=== PATIENT | female | born 1995 | race African-American/Black ===

== ENCOUNTER 2017-08-29 19:59 | Inpatient (IN) ==
[~2017-08-29 19:59] MED LIST: *HR* Nalbuphine 10 MG/ML AMPUL IVP PRN; Famotidine 20 MG/2 ML VIAL IVP PRN; Naloxone 0.4 MG/ML INJ IVP PRN; Ondansetron 4 MG/2 ML VIAL IVP PRN
[2017-08-29] MEDS ORDERED: Penicillin G Potassium 5,000,000 UNIT in 0.9 % Sodium Chloride Mini Bag 100 ML IVPB ONE (20:00)
[2017-08-29] MEDS ORDERED: Ringers Solution, Lactated 1,000 ML IVC SCH (20:00)
[2017-08-29] MEDS ORDERED: miSOPROStol 100 MCG TABLET PO STA (20:00)
--- NOTE | 2017-08-29 20:07 | OB/GYN History & Physical ---
Date of Encounter: 08/29/17 Time of Encounter: 20:03 Assessment and Plan (1) 39 weeks gestation of Current visit: Yes Status: Acute Admit for delivery (2) Spontaneous rupture of membranes Current visit: Yes Status: Acute admit for delivery Will augment labor with cytotec (3) Group B streptococcal infection during Current visit: Yes Status: Acute PCN started per protocol (4) Cystic fibrosis carrier in third trimester, antepartum Current visit: Yes Status: Acute FOB was not tested Patient was seen by MFM (5) Sickle cell trait Current visit: Yes Status: Acute FOB was not tested Patient seen MFM during History of Present Illness Chief complaint: SROM HPI: Ms. Gallagher is a 22 year old female @ 39w2d presents to labor and delivery with complaints of leaking of fluid. Patient reports a large gush around 1830 clear fluid. Patient reports +FM. Denies VB. is a Sickle cell and cystic fibrosis carrier and FOB was not tested. Nitrazine was negative however there was +pooling and + FERN. Blood type: A+ Rubella:Immune Hep B: Nonreactive GBS: Positive Past Med Surg Social Fam HX - Past Medical History Source: patient Medical history: no medical history Psychiatric history: no psych history - Past Surgical History Surgical History: other - Social History Smoking Status: Former smoker Smokeless Tobacco Status: No Alcohol use: none Drug use: none Current living situation: Home - Independent Activity Level: Independent ambulation Recent Out of Country Travel Within the Last 8 Weeks: No Exposure or Possible Exposure to Illness During Travel: No - Family History Mother Adopted: No Living Status: Still Living Hx Family Cancer: Yes (cervical cancer) Obstetrical History - Pregnancies : 2 Para: 0 Term: 0 : 0 Ab's: 1 Livin Medications and Allergies Vitamins 1 tab PO DAILY 07/21/17 [History] 3 Allergy/AdvReac Type Severity Reaction Status Date / Time No Known Allergies Allergy Verified 08/29/17 19:43 Review of System OB - Constitutional Constitutional ROS IM: no chills, no fever(s), no headache(s) - Cardiovascular Cardiovascular: no chest pain, no lightheadedness, no palpitations, no pedal edema, no syncope - Respiratory Respiratory: no cough - Gastrointestinal Gastrointestinal: no abdominal pain, no cramping, no diarrhea, no heartburn, no nausea, no vomiting - Genitourinary Genitourinary: vaginal discharge (per HPI), no abnormal vaginal bleeding, no dysuria, no flank pain, no urinary frequency, no urinary urgency, no vaginal odor, no vaginal pruritis Exam - Constitutional Constitutional: well developed, well nourished, no acute distress, average body habitus - HEENT HEENT: Normocephaly, Mucus Membranes Moist - Neck Neck exam: full ROM, supple - Lungs Respiratory exam: CTAB - Cardiovascular Cardiovascular exam: RRR, +S1, +S2 - Abdomen Abdomen: Present: bowel sounds normal, gravid, non tender - Extremities Extremities exam: full ROM, normal capillary refill, normal inspection Deep Tendon Reflex Grade: 2+ Normal - Vagina Vagina: Present: normal moisture - Cervix Dilation: 2 Effacement: 50 Station: -2 - Uterus Uterus exam: Present: normal size, normal contour - Anus/Rectum Anus/Rectum: Present: normal perianal skin - Comments Comments: 145 bpm moderate variability +15x15 accels no decels noted. Cat. 1 tracing. contractions are irregular Results All other labs normal. - VTE Reasons for not Prescribing Prophylaxis: Treatment not Indicated - Low risk for VTE
[2017-08-29 20:30] LABS: Basophils # 0.1 K/mcL (0.0-0.2); Basophils % 0.4 %; Eosinophils # 0.1 K/mcL (0.0-0.6); Eosinophils % 0.4 %; Hemoglobin 12.1 g/dL (11.5-15.4); Lymphocytes # 2.2 K/mcL (0.6-4.6); Lymphocytes % 16.2 %; Mean Corpuscular HGB Conc 34.6 g/dL (31.6-35.5); Mean Corpuscular Hemoglobin 28.6 pg (28.0-33.3); Mean Corpuscular Volume 82.7 fL (83.0-100.0); Mean Platelet Volume 8.5 fL (9.4-12.4); Monocytes % 7.3 %; Neutrophils # 10.1 K/mcL (1.6-8.9); Platelet Count 238 K/mcL (140-400); Red Blood Count 4.23 M/mcL (3.82-4.97); Red Cell Distribution Width 14.1 % (11.5-14.5); Segmented Neutrophils % 74.7 %
[2017-08-29 20:40] LABS: Amphetamine Screen,Urine Negative ng/mL (Cutoff=1000); Barbiturate Screen,Urine Negative ng/mL (Cutoff=200); Benzodiazepines Screen,Urine Negative ng/mL (Cutoff=200); Cannabinoid Screen,Urine Negative ng/mL (Cutoff = 50); Cocaine Screen,Urine Negative ng/mL (Cutoff= 300); Opiate Screen,Urine Negative ng/mL (Cutoff=300); Phencyclidine Screen,Urine Negative ng/mL (Cutoff=25)
[2017-08-30] MEDS: Penicillin G Potassium 2,500,000 UNIT in 0.9 % Sodium Chloride 100 ML IVPB SCH ×5 (00:34→17:30)
[2017-08-30] MEDS ORDERED: Oxytocin 20 units/ LR 1000 mL 20 UNIT/1,000 ML BAG IVC SCH ×2 (01:15→20:16)
--- NOTE | 2017-08-30 05:38 | OB Labor Progress Note ---
Date of Encounter: 08/30/17 Time of Encounter: 05:35 Labor Progress Note - Subjective Subjective: Patient reports contractions are getting stronger. Pain is 9/10. Discussed POC with patient. Patient denies any questions or concerns. - Cervix Cervix: 3/80/-1, Mid position - Heart Tones Heart Tones: 125 bpm moderate variability +15x15 accels no decels - [place]: 1.5-3 min apart - Interventions Interventions: SVE, IUPC placed without difficulty. Patient tolerated well. - Plan Plan: Continue labor management Patient requesting Nubain for pain medication at this time Patient may have Epidural when desires
[2017-08-30] MEDS ORDERED: *HR* FentaNYL (PF) 100 MCG/2 ML VIAL ONE (06:16)
[2017-08-30] MEDS ORDERED: Bupivacaine-MPF 0.25% 10 ML VIAL ONE (06:16)
[2017-08-30] MEDS ORDERED: Epidural Premix (fent/bupiv) 110 ML EP ONE ×2 (06:17→16:06)
--- NOTE | 2017-08-30 06:57 | Anesthesia Evaluation PreOp ---
Date of Encounter: 08/30/17 Time of Encounter: 06:55 - Past History Planned Operation: [email or web address] Cardiac History: Denies any Significant Hx Pulmonary History: Denies Any Significant HX BUNCH MAKER HAND History: Denies Any Significant HX Other Medical History: Other (occasional heartburn) Anesthesia History: No Prior Anesthetic Complications, Past Anesthesia : Yes (39 weeks, ) Alcohol Use: none Drug use: none Medications and Allergies Vitamins 1 tab PO DAILY 07/21/17 [History] 3 Allergy/AdvReac Type Severity Reaction Status Date / Time No Known Allergies Allergy Verified 08/29/17 19:43 - Meds/Allergy Pre-op Review Medications Reviewed: Yes Allergies Reviewed: Yes Beta Blockers on Current Med List: No Anesthesia Results - Labs 08/29/17 20:00 Anesthesia Exam O2 Sat Height 1.63 m Weight 87.3 kg bp 119/70 Height: 64 Weight: 87 - HEENT Pupil (Motor): Pupils equal Mallampati: II Oral Opening: Greater than 3 - BUNCH MAKER HAND LOC: Oriented BUNCH MAKER HAND Motor: Normal RUE, Normal LUE, Normal RLE, Normal LLE, Normal Face BUNCH MAKER HAND Sensory: Normal: RUE, LUE, RLE, LLE, Face - Cardiac Rhythm: Regular Murmur: None JVD: No Carotid Bruit: No - Pulmonary Breath Sounds: bilateral Clear Respiratory Effort: Symmetrical Anesthesia Assess/Plan ASA Score: 2 Modified Cadwell Scale for Level of Consciousness: Cooperative, oriented, and tranquil Anesthetic Plan: Regional Monitoring Plan: Standard Monitors
[2017-08-30] MEDS ORDERED: *HR* FentaNYL (PF) 100 MCG/2 ML VIAL EP ONE (06:59)
[2017-08-30] MEDS ORDERED: EPHEDrine 50 MG/ML VIAL IVP PRN (06:59)
[2017-08-30] MEDS ORDERED: Bupivacaine-MPF 0.25% 10 ML VIAL EP ONE (06:59)
--- NOTE | 2017-08-30 06:59 | Anesthesia Procedures ---
Date of Encounter: 08/30/17 Time of Encounter: 06:57 Procedures: Anesthesia - Epidural/Spinal Patient ID/Chart reviewed: Yes Patient examined: Yes OB Eval: Gestational age: 39 OB Eval: : 1 OB Eval: Hx Para: 0 OB Eval: Contractions: Non-stressed pattern Consent Obtained: Yes Supplemental Oxygen: None/Room Air Site Prep: Aseptic Technique, 0.5% Chlorhexidine/Alcohol Patient position: upright Local Anesthetic: Lidocaine 1% Amount of Local Anesthetic used: 3 Touhy Needle Gauge: 18 Touhy Needle Depth (cm): 7 Catheter Depth at Skin (cm): 13 Test Dose (1.5% Lido + Epi): Volume given (mls): 3 Test Dose Result: Negative Loading Dose: 0.25% Marcaine (mls): 5 Loading Dose: Fentanyl (mcg): 100 Loading Dose: Other: 3ml nss Loading Dose Administered: Thru Touhy Needle Infusion Med: 0.125% Bupivacaine w/ 2 mcg/ml Fentanyl Infusion Rate (mls/hr): [address]: Tegaderm Interspace Used: L3-L4 Loss of Resistance (LUCIUS): Yes Blood: No CSF: No Paresthesia: No
[2017-08-30] MEDS ORDERED: Epidural Premix (fent/bupiv) 110 ML EP SCH (07:00)
[2017-08-30] MEDS ORDERED: EPHEDrine 50 MG/ML VIAL ONE (07:19)
--- NOTE | 2017-08-30 14:34 | OB Labor Progress Note ---
Date of Encounter: 08/30/17 Time of Encounter: 14:32 Labor Progress Note - Subjective Subjective: Pain controlled with epidural - Cervix Cervix: 5/100/-1 per Maria Elena, RN - Heart Tones Heart Tones: Baseline 140 Moderate variability Accelerations present 15x15 No decelerations FHR Category I - [place]: Mesic activity contractions every 2-3 minutes MVU 180 per Maria Elena, RN - Interventions Interventions: Continue position changes with peanut ball - Plan Plan: Continue expectant management Peanut ball Increase pitocin per policy Anticipate Dr. Marlow is OB industrial relations analyst and available as needed
--- NOTE | 2017-08-30 17:10 | OB Labor Progress Note ---
Date of Encounter: 08/30/17 Time of Encounter: 17:08 Labor Progress Note - Subjective Subjective: Pt comfortable with epidural. - Cervix Cervix: 10/100/+,1 - Heart Tones Heart Tones: Baseline 145 Moderate variability Accelerations present 15x15 late and variable decelerations FHR category II - [place]: Contractions every 2 minutes - Interventions Interventions: SVE - Plan Plan: Continue expectant management Tailor sit Anticipate
--- NOTE | 2017-08-30 18:49 | OB/GYN Procedure Note ---
Delivery - Delivery Date: 08/30/17 Provider: Ivelisse Aguilar (Dr. Malrow) Intrapartum events: none Delivery induction: none Delivery augmentation: pitocin Delivery monitor: external FHT, external uterine Anesthesia: epidural Estimated Blood Loss: 100 - Infant (s) Infant A Delivery Date: 08/30/17 Infant Delivery Time: 18:12 Presentation: vertex Position: OA Route of delivery: Gender: Female Viability: Viable Pounds: 6 Ounces: 3 Weight Gram: 2.815 kg at 1 minute: 8 at 5 mins: 9 Shoulder Dystocia: not encountered Specimens collected: cord blood Placenta: spontaneous Cord: 3 umbilical vessels - Repair Episiotomy: none Laceration Description: Perineal - 2nd Degree - Complications Delivery complications: none Delivery comments: Ms. Gallagher is a 22-year-old G2 now P1 who is admitted for spontaneous rupture of membranes. She progressed with pitocin augmentation to the second stage of labor. She pushed for 40 minutes and under maternal effort she delivered a viable female infant, OP over a second-degree laceration. The was placed on the maternal abdomen and was bulb suctioned. No nuchal cord was identified and no shoulder dystocia was encountered. scores were 8 and at 1 minute and 9 at 5 minutes. The placenta delivered spontaneously, intact with a three-vessel cord. Inspection revealed a second-degree perineal laceration. The laceration was repaired with 3-0 Monocryl. The uterus was firm with no active bleeding. The repair was done under epidural anesthesia. EBL was 100 mL. Placenta and umbilical artery blood gases were not sent. There were no complications during the procedure. Mom and baby skin to skin following delivery. Dr. Marlow was present for the entire procedure. - Disposition Mom disposition: stable in LDR [place] disposition: stable in LDR - Comments Comments: Attending note: I was supervised the delivery and did the repair. Patient had a second degree laceration that was repaired with 3-0 vicryl. Pls see the rest of the delivery note above.
[2017-08-30] MEDS ORDERED: Benzocaine/Menthol 56 GM AEROSOL SPRAY TP PRN (20:16)
[2017-08-30] MEDS ORDERED: Acetaminophen 325 MG TABLET PO PRN (20:16)
[2017-08-31] MEDS: Ibuprofen 600 MG TABLET PO PRN ×2 (05:44→16:19)
--- NOTE | 2017-08-31 08:09 | Discharge Summary ---
Date of Encounter: 08/31/17 Time of Encounter: 08:06 - Discharge Diagnosis (1) Vaginal delivery Priority: Primary Status: Acute Comments: Pain well controlled with PO pain meds Tolerating regular diet Voiding independently Passing flatus, but no BM yet Lochia light Ambulating independently OK for discharge today - Discharge Medications Prescriptions: Ibuprofen [Motrin] 600 mg PO Q6HR PRN #30 tablet PRN Reason: Cramping Docusate [Colace] 100 mg PO BID #60 capsule Ferrous Sulfate 325 mg PO DAILY #30 tablet Home Medications: Vitamins 1 tab PO DAILY 07/21/17 [History] Acetaminophen [Tylenol] 650 mg PO Q6HR PRN tablet 08/31/17 [Rx] Benzocaine/Menthol [place] [Dermoplast [place]] 1 appl TP QID PRN aerosol 08/31/17 [Rx] Docusate [Colace] 100 mg PO BID #60 capsule 08/31/17 [Rx] Ferrous Sulfate 325 mg PO DAILY #30 tablet 08/31/17 [Rx] Ibuprofen [Motrin] 600 mg PO Q6HR PRN #30 tablet 08/31/17 [Rx] Allergies/Adverse Reactions: 3 Allergy/AdvReac Type Severity Reaction Status Date / Time No Known Allergies Allergy Verified 08/29/17 19:43 Data Procedures and tests throughout hospitalization: Laboratory Tests 08/29/17 08/29/17 19:59 20:00 WBC 13.5 H RBC 4.23 Hgb 12.1 Hct 35.0 L MCV 82.7 L MCH 28.6 MCHC 34.6 RDW 14.1 Plt Count 238 MPV 8.5 L Immature Gran % 1.0 Seg Neutrophils % 74.7 Lymphocytes % 16.2 Monocytes % 7.3 Eosinophils % 0.4 Basophils % 0.4 Neutrophils # 10.1 H Lymphocytes # 2.2 Monocytes # 1.0 Eosinophils # 0.1 Basophils # 0.1 Urine Opiates Screen Negative Ur Barbiturates Screen Negative Ur Phencyclidine Scrn Negative Ur Amphetamines Screen Negative U Benzodiazepines Scrn Negative Urine Cocaine Screen Negative U Marijuana (THC) Screen Negative Date of admission: 08/29/17 19:59 Primary care physician: PCP NONE Consults: 08/30/17 20:16 Consult to [facility] Producer [CONS] Routine Comment: Vaginal delivery, consult needed Discharging clinician: Ivelisse Aguilar Anticipated date of discharge: 08/31/17 - Patient Status Disposition: Home, Self-Care Condition: Good Functional capacity at discharge: independent ambulation Overall status at discharge: patient is progressing back to baseline - Discharge Instructions Follow Up With: NONE,PCP [Primary Care Provider] - Ivelisse Aguilar [Advanced Practice Nurse] - - Diet and Activity Activity: increase activity as tolerated Diet: regular diet Hospital Course Reason for admission: rupture of membranes, IUP at term Delivery: Episiotomy: none Laceration: 2nd degree Other procedures: none complications: none Discharge diagnosis: IUP at term delivered [place] baby: female Time Attestation: Total time spent providing and/or coordinating discharge services: Time Spent: Less than 30 minutes Exam - Constitutional Vitals: Temp Pulse Resp BP Pulse Ox 98.3 F 97 16 108/62 100 08/31/17 05:20 08/31/17 05:20 08/31/17 05:20 08/31/17 05:20 08/31/17 05:20 General appearance IM: A&O X 3 - Respiratory Respiratory exam: Present: CTAB - Cardiovascular Cardiovascular exam IM: Present: RRR, +S1, +S2 - GI/Abdominal GI/Abdominal exam IM: normal bowel sounds, no peritoneal signs - Rectal Rectal exam: deferred - Uterine Tone: Firm Uterus Position: At Umbilicus, Midline - Extremities Exam Extremities exam IM: Present: normal inspection, radial pulses palpable and symmetrical - Neurological Exam Neurological exam: alert, oriented X3 - Psychiatric Additional comments: Denies history of depression/anxiety. States she is feeling mentally well today. S/sx of PPD discussed and pt verbalized when to call. - Other Additional findings: Patient has a 2cm x 2cm hive on the back of her right arm, just above the elbow that appeared last night. States it is pruritic in nature. While examining the patient, I noted a small, red insect crawl out from underneath her pillow. Insect showed to nurse and environmental services and was determined to be a bed bug. Room and bed will be cleaned by environmental services.
[2017-08-31] MEDS ORDERED: DiphenhydraMINE CREAM 28.4 GM TUBE TP PRN (08:14)
[2017-08-31] MEDS ORDERED: Prenatal Vit/FA 1 EACH TABLET PO SCH (09:00)
[2017-08-31 16:24] VITALS: BP 118/80
== END 2017-08-31 19:15 | disposition home or self-care (01) | DRG 560 ==
LOC: 1NENULAB → 1NENUOBS 08-30 20:39
PROVIDERS: ADMIT Advanced Practice Midwife; ATTEND Advanced Practice Midwife

== ENCOUNTER → 2018-06-17 02:45 | Observation (INO) ==
[2018-06-17 02:12] LABS: Bilirubin,Urine Negative (Negative); Blood,Urine Negative (Negative); Clarity,Urine Clear (Clear); Color,Urine Yellow (Yellow); Glucose,Urine (UA) Normal (Normal); Ketones,Urine Negative (Negative); Leukocyte Esterase,Urine Trace (Negative); Nitrite,Urine Negative (Negative); Protein,Urine Negative (Neg-Trace); Specific Gravity,Urine < 1.005 (1.010-1.025); Urobilinogen,Urine Normal (Normal)
[2018-06-17 02:13] LABS: Bacteria,Urine None Seen per hpf (None-Few); Hyaline Casts,Urine None Seen per lpf (None-Few); RBC,Urine 0-3 per hpf (0-3); Squamous Epithelial Cell,Urine Moderate per lpf (None-Few); WBC,Urine 0-3 per hpf (0-3)
--- NOTE | 2018-06-17 02:18 | OB Labor Progress Note ---
Date of Encounter: 06/17/18 Time of Encounter: 02:15 Labor Progress Note - Subjective Subjective: Pt presents with c/o low back with onset at 22:30. Rare uc's, no vb or lof. She denies UTI sx's. She has been hydrating well. - Vital Signs Vital Signs: AF,VSS - Cervix Cervix: cl/th/-3 - Heart Tones Heart Tones: RNST - [place]: none - Plan Plan: Will D/c home.
[2018-06-17 02:45] LABS: Amphetamine Screen,Urine Negative ng/mL (Cutoff=1000); Barbiturate Screen,Urine Negative ng/mL (Cutoff=200); Benzodiazepines Screen,Urine Negative ng/mL (Cutoff=200); Cocaine Screen,Urine Negative ng/mL (Cutoff= 300); Opiate Screen,Urine Negative ng/mL (Cutoff=300); Phencyclidine Screen,Urine Negative ng/mL (Cutoff=25)
[2018-06-17 02:57] LABS: Cannabinoid Screen,Urine Positive ng/mL (Cutoff = 50)
== END | disposition home or self-care (01) ==
LOC: 1NENULAB
PROVIDERS: ADMIT Registered Nurse; ATTEND Registered Nurse

== ENCOUNTER 2020-10-25 03:52 | Inpatient (IN) ==
[2020-10-25] MEDS ORDERED: miSOPROStoL 25 MCG TABLET PO PRN (04:06)
[2020-10-25] MEDS ORDERED: Famotidine 20 MG/2 ML VIAL IVP PRN (04:07)
[2020-10-25] MEDS ORDERED: Metoclopramide 10 MG/2 ML VIAL IVP PRN (04:07)
[2020-10-25] MEDS ORDERED: *HR* Nalbuphine 10 MG/ML AMPUL IV PRN (04:07)
[2020-10-25] MEDS ORDERED: Naloxone 0.4 MG/ML INJ IVP PRN (04:07)
[2020-10-25] MEDS ORDERED: Azithromycin 500 MG in 0.9 % Sodium Chloride 250 ML IVPB PRN (04:07)
[2020-10-25] MEDS ORDERED: Penicillin G Potassium 5,000,000 UNIT in 0.9 % Sodium Chloride Mini Bag 100 ML IVPB ONE (04:12)
[2020-10-25] MEDS ORDERED: Ringers Solution, Lactated 1,000 ML IVC SCH (04:15)
[2020-10-25 04:41] LABS: Basophils # 0.1 K/mcL (0.0-0.2); Basophils % 0.3 %; Eosinophils # 0.1 K/mcL (0.0-0.6); Eosinophils % 0.7 %; Hematocrit 30.8 % (35.3-44.9); Hemoglobin 10.6 g/dL (11.5-15.4); Immature Granulocytes % 0.7 % (0-4); Lymphocytes # 3.1 K/mcL (0.6-4.6); Lymphocytes % 21.1 %; Mean Corpuscular HGB Conc 34.4 g/dL (31.6-35.5); Mean Corpuscular Hemoglobin 28.9 pg (28.0-33.3); Mean Corpuscular Volume 83.9 fL (83.0-100.0); Mean Platelet Volume 8.7 fL (9.4-12.4); Monocytes # 1.3 K/mcL (0.0-1.3); Monocytes % 9.1 %; Platelet Count 248 K/mcL (140-400); Red Blood Count 3.67 M/mcL (3.82-4.97); Red Cell Distribution Width 13.6 % (11.5-14.5); Segmented Neutrophils % 68.1 %; White Blood Count 14.7 K/mcL (4.3-11.1)
[2020-10-25 04:48] LABS: Amphetamine Screen,Urine Negative ng/mL (Cutoff=1000); Barbiturate Screen,Urine Negative ng/mL (Cutoff=200); Benzodiazepines Screen,Urine Negative ng/mL (Cutoff=200); Cannabinoid Screen,Urine Negative ng/mL (Cutoff = 50); Cocaine Screen,Urine Negative ng/mL (Cutoff= 300); Opiate Screen,Urine Negative ng/mL (Cutoff=300); Phencyclidine Screen,Urine Negative ng/mL (Cutoff=25)
[2020-10-25] MEDS ORDERED: EPHEDrine 50 MG/ML VIAL IVP PRN (06:39)
[2020-10-25] MEDS ORDERED: Epidural Premix (fent/bupiv) 110 ML EP SCH (06:45)
[2020-10-25] MEDS: Penicillin G Potassium 2,500,000 UNIT/105 ML MLS IVPB SCH ×3 (08:40→17:47)
[2020-10-25] MEDS ORDERED: Oxytocin 20 units/ LR 1000 mL 20 UNIT/1,000 ML BAG IVC SCH ×2 (08:45→21:53)
[2020-10-25] MEDS ORDERED: Oxytocin 20 units/ LR 1000 mL 20 UNIT/1,000 ML BAG IVC ONE (08:50)
[2020-10-25] MEDS ORDERED: Acetaminophen 325 MG TABLET PO PRN (21:53)
[2020-10-25] MEDS ORDERED: *HR* HYDROcodone/Acet 5/325 mg TABLET PO PRN (21:53)
[2020-10-25] MEDS ORDERED: Benzocaine/Menthol 56 GM AEROSOL SPRAY TP PRN (21:53)
[2020-10-25] MEDS: Ibuprofen 600 MG TABLET PO PRN (23:33)
[2020-10-26] MEDS ORDERED: Prenatal Vit/FA 1 EACH TABLET PO SCH (09:00)
[2020-10-26] MEDS: Ibuprofen 600 MG TABLET PO PRN (11:13)
[2020-10-26 15:40] VITALS: BP 134/81
== END 2020-10-26 17:44 | disposition home or self-care (01) | DRG 560 ==
LOC: 1NENULAB 03:52 → 1NENUOBS 21:47
PROVIDERS: ADMIT Advanced Practice Midwife; ATTEND Advanced Practice Midwife